=== PATIENT | female | born 1940 | race Caucasian/White ===

== ENCOUNTER 2021-07-19 11:44 | Emergency (ER) | payer MEDICARE, SELFPAY ==
--- NOTE | ~2021-07-19 | XR_ITS ---
EXAMINATION: RIGHT KNEE AND RIGHT HAND X-RAYS CLINICAL INFORMATION: Trauma COMPARISON: None TECHNIQUE: 4 views of the right knee and 3 views of the right and FINDINGS: Right knee: Bone alignment is normal. No fracture or dislocation is seen. There is mild arthritis at the medial femoral tibial and patellofemoral joints with joint space narrowing and osteophyte formation. There is a small joint effusion. There is evidence of atherosclerotic disease. Right hand: Bone alignment is normal. No fracture or dislocation is seen. There is arthritis first MCP and DIP joints with joint space narrowing and osteophyte formation. Soft tissues are unremarkable. XR/XR knee RT 4V IMPRESSION: Degenerative changes. No fracture or dislocation is seen.
--- NOTE | ~2021-07-19 | CT_ITS ---
EXAMINATION: CT HEAD WITHOUT CONTRAST CT FACIAL BONES WITHOUT CONTRAST CT CERVICAL SPINE WITHOUT CONTRAST CLINICAL INFORMATION: Tripped and fall. Right cheek abrasion. COMPARISON: None available. TECHNIQUE: Imaging was performed from the skull base to vertex without intravenous administration of contrast. In addition, helical noncontrast CT imaging was acquired through the cervical spine and facial bones and source images were reviewed along with axial reconstructions and sagittal and coronal MPRs. This CT examination was performed using dose optimization techniques as appropriate, variously including the following: *Automated exposure control. *Adjustment of mA and/or kV according to patient size (this includes techniques or standardized protocols for targeted exams where dose is matched to indication/reason for exam; i.e. extremities or head). *Use of iterative reconstruction technique. DLP: 129 mGy-cm FINDINGS: Head: There is no evidence of acute intracranial hemorrhage or edematous territorial infarction. A few foci of hypoattenuation in the periventricular and deep white matter are consistent with mild to moderate microangiopathy. Estrada-white matter differentiation is preserved. Proportional prominence of the ventricles and sulcal spaces. No evidence for obstructive hydrocephalus. No abnormal mass effect or midline shift. No extra-axial fluid collections. Calcific atherosclerotic disease of the intracranial internal carotid and vertebral arteries. No hyperdense vessel sign. No acute soft tissue or osseous abnormalities. The mastoid air cells and middle ear cavities remain well aerated. Maxillofacial Bones: No evidence of maxillofacial bone fractures. The zygomatic arches remain intact. No nasal bone fracture. Mild rightward nasal septal deviation. No evidence of mandibular or maxillary fracture. The mandibular condyles remain well-seated in their respective temporal articular grooves. Mild degenerative arthropathy of the temporomandibular joints. Normal appearance of the intraconal and extraconal fat. No evidence of traumatic injury to the extraocular musculature or globes. Atelectasis of the right greater than left maxillary sinuses with hyperostosis of the maxillary sinus lara. Near complete opacification of the right maxillary sinus. Moderate mucosal thickening of the left maxillary sinus. Dehiscence of the anterior wall the right maxillary sinus and inferior medial wall of the left maxillary sinus, potentially postprocedural in nature. Changes of partial right inferior turbinectomy. Moderate mucosal thickening of the remaining paranasal sinuses. No layering fluid collections. Periapical lucencies associated with the mandibular premolars and molars. Mild subcutaneous edema/hematoma lateral to the right orbit. No discrete fluid collection. Cervical Spine: The atlantooccipital and atlantoaxial articulations remain well aligned. Straightening of the normal cervical lordosis. Mild degenerative anterolistheses of C2 on C3 and C7 on T1. Otherwise, there is anatomic alignment of the vertebral bodies and posterior elements. No evidence of acute fracture or subluxation. The vertebral body heights are maintained. Advanced degenerative disc disease from C3-C7 with disc-osteophyte complex formation. Associated mild to moderate spinal canal stenosis at C3-C4, C5-C6, and C6-C7. Facet and uncovertebral joint arthropathy leads to osseous encroachment on the neural foramina from C2-T1. There is no prevertebral soft tissue swelling. Heterogeneous hypoattenuating thyroid nodule in the right thyroid lobe, measuring up to 1.8 cm. The remaining cervical soft tissues are normal in appearance. The lung apices demonstrate no abnormalities. CT/CT cervical spine wo con IMPRESSION: 1. No evidence of acute intracranial hemorrhage or edematous territorial infarction. Mild to moderate underlying microangiopathy and generalized cerebral volume loss. 2. No evidence of acute fracture or traumatic subluxation of the cervical spine. Moderate multilevel degenerative spondyloarthropathy of the cervical spine as described in detail above. Most notably, there are mild to moderate spinal canal stenoses at C3-C4, C5-C6, and C6-C7. 3. No evidence of acute fracture or of the maxillofacial bones. 4. Moderate chronic sinonasal mucosal disease. Atelectasis of the right greater than left maxillary sinuses. 5. There is a 1.8 cm nodule in the right thyroid lobe. This could be further characterized with thyroid ultrasound if clinically indicated.
--- NOTE | ~2021-07-19 | XR_ITS ---
EXAMINATION: RIGHT KNEE AND RIGHT HAND X-RAYS CLINICAL INFORMATION: Trauma COMPARISON: None TECHNIQUE: 4 views of the right knee and 3 views of the right and FINDINGS: Right knee: Bone alignment is normal. No fracture or dislocation is seen. There is mild arthritis at the medial femoral tibial and patellofemoral joints with joint space narrowing and osteophyte formation. There is a small joint effusion. There is evidence of atherosclerotic disease. Right hand: Bone alignment is normal. No fracture or dislocation is seen. There is arthritis first MCP and DIP joints with joint space narrowing and osteophyte formation. Soft tissues are unremarkable. XR/XR hand RT min 3V IMPRESSION: Degenerative changes. No fracture or dislocation is seen.
[2021-07-19 12:29] VITALS: BP 119/68; PULSE 76; RESP 18; TEMP 36.7; O2SAT 98; BMI 23.2
[2021-07-19 15:37] LABS: Glucose, Whole Blood 89 mg/dL (60-115)
--- NOTE | 2021-07-19 15:47 | ED_ITS ---
HPI - Fall General Chief Complaint: Fall Stated Complaint: fall - face & hand injury Time Seen by Provider: 07/19/21 15:46 Related Data Home Medications Medication Instructions Recorded Confirmed amlodipine 5 mg-benazepril 10 mg 1 cap PO DAILY 07/19/21 capsule atorvastatin 10 mg tablet 10 mg PO DAILY 07/19/21 budesonide-formoterol HFA 160 2 puff INHALATION BID 07/19/21 mcg-4.5 mcg/actuation aerosol inhaler (Symbicort) loratadine 10 mg tablet 10 mg PO DAILY 07/19/21 metformin 500 mg tablet 500 mg PO BID 07/19/21 montelukast 10 mg tablet 10 mg PO DAILY 07/19/21 omeprazole 40 mg capsule,delayed 40 mg PO DAILY 07/19/21 release Allergies Allergy/AdvReac Type Severity Reaction Status Date / Time No Known Allergies Allergy Verified 07/19/21 10:55 [facility] Past Medical History Medical History Asthma Diabetes Lung disease Social History Social History Advance Directives: No Advance Directives Information Provided: No Physical Exam Vital Signs: Vital Signs: Last Vital Signs Temp 98.1 F 07/19/21 12:29 Pulse 76 07/19/21 12:29 Resp 18 07/19/21 12:29 BP 119/68 07/19/21 12:29 Pulse Ox 98 07/19/21 12:29 Body Mass Index 23.2 Course Course Course Narrative: Patient presents to the ED for fall around 8:30am. Patient states she tripped and fell at 8:30am with no loss of consciousness. Imaging ordered. Rapided medical screen done for imaging. patient is A0x3. Mechanical Fall. MDM - Fall Lab Data Labs: Lab Results 07/19/21 Range/Units 15:33 POC Glucose 89 (60-115) mg/dL Discharge Plan Discharge Clinical Impression: Effusion of knee, Right wrist sprain, Laceration of face Patient Disposition: Home, Self-Care Instructions: How to Use an Elastic Bandage (ED), Swollen Knee Joint (ED), Skin Adhesive Care (ED), Wrist Sprain (ED), Steristrips (ED) Additional Instructions: CT scan all normal. Heat or ice Follow-p with PCP as needed DO not scrub the area on your face with the bandage. Wash around it. Remove these after 5 days Prescriptions: No Action atorvastatin 10 mg tablet 10 mg PO DAILY RF: 0 amlodipine-benazepril 5-10 mg capsule 1 cap PO DAILY RF: 0 omeprazole 40 mg capsule,delayed release(DR/EC) 40 mg PO DAILY RF: 0 metformin 500 mg tablet 500 mg PO BID RF: 0 montelukast 10 mg tablet 10 mg PO DAILY RF: 0 budesonide-formoterol [Symbicort] 160-4.5 mcg/actuation HFA aerosol inhaler 2 puff inhalation BID RF: 0 loratadine 10 mg tablet 10 mg PO DAILY RF: 0 Referrals: Isauro Fuller MD [Primary Care Provider] - 2 days Interventions: ED Discharge Assessment Last Done: 07/19/21 17:58 Discharge Date/Time: 07/19/21 17:59
--- NOTE | 2021-07-19 16:11 | ED.FALL ---
HPI - Fall General Chief Complaint: Fall Stated Complaint: fall - face & hand injury Time Seen by Provider: 07/19/21 15:46 Source: patient Mode of arrival: ambulatory Limitations: no limitations History of Present Illness HPI Narrative: 80 year old female past medical history significant for diabetes,asthma, hypertension presents to the emergency department with pain to her right wrist and knee and in to the right side of her face status post trip and fall at 08:00 this morning. She states she was walking, she tripped on the curb, and fell onto the right side of her body and hit her face on the curb. She denies LOC and changes in vision. Earlier today she reports she had a mild headache, but it has subsided. She currently takes ASA daily. She denies chest pain, dizziness, shortness of breath, vision changes, abdominal pain, weakness, fevers, chills. She is not up to date on her tetanus shot. complaint: fall Onset (ago): hour(s) (8) Fall from: standing Fall witnessed: no Place fall occurred: home Loss of consciousness: none Related Data Home Medications Medication Instructions Recorded Confirmed amlodipine 5 mg-benazepril 10 mg 1 cap PO DAILY 07/19/21 capsule atorvastatin 10 mg tablet 10 mg PO DAILY 07/19/21 budesonide-formoterol HFA 160 2 puff INHALATION BID 07/19/21 mcg-4.5 mcg/actuation aerosol inhaler (Symbicort) loratadine 10 mg tablet 10 mg PO DAILY 07/19/21 metformin 500 mg tablet 500 mg PO BID 07/19/21 montelukast 10 mg tablet 10 mg PO DAILY 07/19/21 omeprazole 40 mg capsule,delayed 40 mg PO DAILY 07/19/21 release Allergies Allergy/AdvReac Type Severity Reaction Status Date / Time No Known Allergies Allergy Verified 07/19/21 10:55 Review of Systems Review of Systems: Yes all other systems are reviewed and are negative Constitutional: Constitutional: Reports no additional constitutional complaints, Denies body ache(s), Denies chills, Denies fever(s), Denies headache(s) and Denies weakness Eyes: Eyes: Reports no additional eye complaints and Denies change in vision ENT: Reports system reviewed and no additional complaints, except as documented, Denies dizziness, Denies headache(s), Denies nasal congestion, Denies nasal discharge and Denies neck pain Cardiovascular: Cardiovascular: Reports no additional cardiovascular complaints, Denies chest pain, Denies leg edema and Denies dyspnea Respiratory: Respiratory: Reports no additional respiratory complaints, Denies cough and Denies dyspnea Gastrointestinal: Gastrointestinal: Reports no additional gastrointestinal complaints, Denies abdominal pain, Denies diarrhea, Denies nausea and Denies vomiting Genitourinary: Genitourinary: Reports no additional female genitourinary complaints and Denies urinary incontinence Musculoskeletal: Musculoskeletal: Reports no additional musculoskeletal complaints, Denies back pain, Reports arthralgias (right wrist/hand, knee and right side of face inferior to r. eye.), Reports joint swelling (right wrist/hand, knee and right side of face inferior to r. eye.), Denies neck pain, Denies numbness and Denies tingling Integumentary/Breasts: Skin/Breast: Reports system reviewed and no additional complaints, except as docu and Denies rash Neurologic: Reports system reviewed and no additional complaints, except as documented, Denies Abnormal speech present, Denies dizziness, Denies headache(s), Denies numbness, Denies tingling and Denies weakness [facility] Past Medical History Attestation statement: The following information was validated with the patient. Source: old records reviewed and nursing notes reviewed Medical History Asthma Diabetes Lung disease Social History Social History Advance Directives: No Advance Directives Information Provided: No Physical Exam Vital Signs: Vital Signs: Last Vital Signs Temp 98.1 F 07/19/21 12:29 Pulse 76 07/19/21 12:29 Resp 18 07/19/21 12:29 BP 119/68 07/19/21 12:29 Pulse Ox 98 07/19/21 12:29 Body Mass Index 23.2 Const: General: cooperative, healthy appearing, comfortable and no acute distress Orientation/consciousness: patient oriented x3 Limitations: no limitations HENMT: Head: Yes normal to inspection Ears: hearing grossly normal bilaterally General nose exam: Normal external nose present Face and sinus: Yes other (erythema, edema and ecchymosis noted inferior to right eye) Mouth: Normal oral and palatal mucosa present Throat: Yes posterior oropharynx normal Eyes: General: appearance normal, both eyes and all related structures Alignment and Position: alignment normal Eyelids: Yes eyelids normal Conjunctivae: conjunctivae normal Pupils: Equal, round and reactive pupils present EOM: EOMs intact bilaterally Direct Ophthalmoscopy: normal light reflex Neck: Neck: Yes normal visual inspection Chest: Chest palpation & inspection: normal inspection of the chest Resp: Effort & Inspection: normal respiratory effort Auscultation: clear to auscultation bilaterally Cardio: Rate: regular rate Rhythm: regular rhythm Peripheral pulses: Peripheral pulses 2+ throughout GI: Inspection: Yes normal to inspection Palpation (GI): Soft to palpation and nontender Auscultation: normal bowel sounds Back/Spine/Pelvis: Thoracic/Lumbar Spine: thoracic and lumbar spine normal to inspection Skin: Other: There is a linear laceration noted to the right lateral aspect of the face it is about 2 cm, right underneath it there is a small abrasion aswell about 1 cm. There is also erythema, edema and slight ecchymosis inferior to the right eye. General skin exam: rashes and/or lesions noted Neuro: General: patient oriented x3, gait normal, moves all extremities, Normal light touch and pain sensation, no focal motor deficits and normal sensation to monofilament Cranial nerves: Yes Equal, round and reactive pupils present, Yes Normal accommodation reflex present, Yes Bilaterally intact EOM present, Yes Nystagmus not present and Yes Normal facial strength present Cognition (Neuro): normal cognition Speech: No Abnormal speech present Gait exam (Neuro): Normal gait present Motor exam (neuro): 5/5 motor strength present throughout Extrem: Other: There is swelling noted to the right knee and right wrist. There is full range of motion, free of pain. Course Course Course Narrative: 80 yo female pmhx asthma, HTN and DM presents to the ED with pain to right wrist, knee, and to the right side of her face s/p trip and fall when steping on to the curb this morning around 8:00. She states she has noted swelling to her knee and wrist. She takes 81 mg of ASA PO daily. She denies LOC, changes in vision, CP, SOB, dizzinss. She had a headache earlier today which resolved. Upon physical examination of a 2 cm laceration noted to the lateral aspect of the face, there is also a small 1cm abrasion noted right underneath it. There is also erythema, edema and ecchymosis noted inferior to the right eye. She denies pain with extraocular movements. Pupils are equal round and reactive to light bilaterally. She has normal strength. There is slight swelling noted to her right wrist, and knee. However she has full range of motion, free of pain. 1730-images show no acute bony abnormality. This was reviewed with the patient and the family member at the bedside. Reviewed worrisome signs and symptoms when to return to the emergency department. Comfortable discharge home. MDM - Fall MDM Narrative Medical decision making narrative: Based off of the mechanism of the injury an x-ray of the hand and knee has been ordered. A CT of the face, head/soria and cervical spine has also been ordered to rule out fracture and ICH. Liley no fractures to cervical spine there are no step off and no pain with ROM or palpation. Patient is alert and oriented, to person place time and situation, no focal neuro deficits not likely ICH. Patient likely has a mild concussion bassed off of the mechanism of injury and her symptoms. The two small lacerations on her face were closed with glue and steri strips. Edges were well approximated. Xray of hand and knee show no fractures. Xray of the knee shows a small joint effusion, she will be given an jaun bandage. She will be educated on RICE. Medical Records Attestation: I reviewed the patient's medical records. Lab Data Attestation: I reviewed the patient's lab results. Labs: Lab Results 07/19/21 Range/Units 15:33 POC Glucose 89 (60-115) mg/dL Imaging Data Xray of hand and knee : Attestation: I personally reviewed and interpreted this imaging study as follows: Radiologist's impression: FINDINGS: Right knee: Bone alignment is normal. No fracture or dislocation is seen. There is mild arthritis at the medial femoral tibial and patellofemoral joints with joint space narrowing and osteophyte formation. There is a small joint effusion. There is evidence of atherosclerotic disease. Right hand: Bone alignment is normal. No fracture or dislocation is seen. There is arthritis first MCP and DIP joints with joint space narrowing and osteophyte formation. Soft tissues are unremarkable. XR/XR hand RT min 3V IMPRESSION: Degenerative changes. No fracture or dislocation is seen.? CT chest/cervical spine/facial bones: Attestation: I personally reviewed and interpreted this imaging study as follows: Radiologist's impression: IMPRESSION: 1. No evidence of acute intracranial hemorrhage or edematous territorial infarction. Mild to moderate underlying microangiopathy and generalized cerebral volume loss. ? 2. No evidence of acute fracture or traumatic subluxation of the cervical spine. Moderate multilevel degenerative spondyloarthropathy of the cervical spine as described in detail above. Most notably, there are mild to moderate spinal canal stenoses at C3-C4, C5-C6, and C6-C7. ? 3. No evidence of acute fracture or of the maxillofacial bones. ? 4. Moderate chronic sinonasal mucosal disease. Atelectasis of the right greater than left maxillary sinuses. ? 5. There is a 1.8 cm nodule in the right thyroid lobe. This could be further characterized with thyroid ultrasound if clinically indicated. Discharge Plan Discharge Clinical Impression: Effusion of knee Qualifiers: Laterality: right Qualified Code(s): M25.461 - Effusion, right knee Right wrist sprain Qualifiers: Encounter type: initial encounter Qualified Code(s): S63.501A - Unspecified sprain of right wrist, initial encounter Laceration of face Qualifiers: Encounter type: initial encounter Qualified Code(s): S01.81XA - Laceration without foreign body of other part of head, initial encounter Patient Disposition: Home, Self-Care Instructions: How to Use an Elastic Bandage (ED), Swollen Knee Joint (ED), Skin Adhesive Care (ED), Wrist Sprain (ED), Steristrips (ED) Additional Instructions: CT scan all normal. Heat or ice Follow-p with PCP as needed DO not scrub the area on your face with the bandage. Wash around it. Remove these after 5 days Prescriptions: No Action atorvastatin 10 mg tablet 10 mg PO DAILY RF: 0 amlodipine-benazepril 5-10 mg capsule 1 cap PO DAILY RF: 0 omeprazole 40 mg capsule,delayed release(DR/EC) 40 mg PO DAILY RF: 0 metformin 500 mg tablet 500 mg PO BID RF: 0 montelukast 10 mg tablet 10 mg PO DAILY RF: 0 budesonide-formoterol [Symbicort] 160-4.5 mcg/actuation HFA aerosol inhaler 2 puff inhalation BID RF: 0 loratadine 10 mg tablet 10 mg PO DAILY RF: 0 Referrals: Isauro Fuller MD [Primary Care Provider] - 2 days
== END 2021-07-19 17:59 | disposition home or self-care (01) ==
PROVIDERS: Emergency Provider Emergency Medicine; PCP Pediatrics
DX: S01.81XA Laceration without foreign body of other part of head, initial encounter (principal); S63.501A Unspecified sprain of right wrist, initial encounter; M25.461 Effusion, right knee; M54.2 Cervicalgia; M25.561 Pain in right knee; G44.309 Post-traumatic headache, unspecified, not intractable; R60.0 Localized edema; I10 Essential (primary) hypertension; E11.9 Type 2 diabetes mellitus without complications; W01.0XXA Fall on same level from slipping, tripping and stumbling without subsequent striking against object, initial encounter; Y93.9 Activity, unspecified; Y92.480 Sidewalk as the place of occurrence of the external cause; Y99.9 Unspecified external cause status; Z79.899 Other long term (current) drug therapy; M79.641 Pain in right hand
CPT/HCPCS: 70450; 70486; 72125; 73130; 73564; 82947; 99283; 99284